=== PATIENT | male | born 1950 | race Caucasian/White ===

== ENCOUNTER → 2020-11-16 | Outpatient (CLI) | payer MEDICARE | END | disposition home or self-care (01) | LOC: CFH 12:36 | PROVIDERS: ATTEND Family Medicine | DX: M79.89 Other specified soft tissue disorders (principal); L08.9 Local infection of the skin and subcutaneous tissue, unspecified ==

== ENCOUNTER 2020-12-04 05:57 | Emergency (ER) | payer MEDICARE ==
[~2020-12-04] VITALS: Ht 198.1 cm; Wt 102.4 kg
--- NOTE | 2020-12-04 07:01 | NUR ---
report to justino, rns
--- NOTE | 2020-12-04 07:03 | NUR ---
bedside report received from shana paiz. pt a&o, resps even and unlabored, terence.
[2020-12-04 07:13] LABS: BASOPHILS % (AUTO) 1 % (0-1); EOSINOPHILS % (AUTO) 3 % (1-7); HCT (SEDRATE) 46.1 % (39.2-51.8); LYMPHOCYTES % (AUTO) 24 % (22-44); MEAN CORPUSCULAR HEMOGLOBIN 30.2 pg (27.5-34.5); MEAN CORPUSCULAR HGB CONC 34.2 g/dL (33.2-36.2); MEAN PLATELET VOLUME 8.4 fL (7.4-10.4); MONOCYTES % (AUTO) 9 % (2-9); NEUTROPHILS % (AUTO) 63 % (42-75); PLATELET COUNT 208 x10^3/uL (130-400); RED BLOOD COUNT 5.22 x10^6/uL (4.38-5.82); RED CELL DISTRIBUTION WIDTH 13.6 % (9.4-14.8)
[2020-12-04 07:20] LABS: ALANINE AMINOTRANSFERASE 46 U/L (12-78); ANION GAP 5 mmol/L (5-15); C-REACTIVE PROTEIN, QUANT 0.06 mg/dL (0.02-0.49); CALCIUM 9.4 mg/dL (8.5-10.1); CHLORIDE 109 mmol/L (98-107)
[2020-12-04 07:22] LABS: ALKALINE PHOSPHATASE 64 U/L (45-117); BILIRUBIN,TOTAL 2.8 mg/dL (0.2-1.0); CREATININE 0.79 mg/dL (0.7-1.3); TOTAL PROTEIN 6.9 g/dL (6.4-8.2)
--- NOTE | 2020-12-04 07:33 | NUR ---
report given to alexx paiz
--- NOTE | 2020-12-04 07:36 | NUR ---
Report received from Elissa. Care assumed
--- NOTE | 2020-12-04 07:51 | NUR ---
pt out of room to MRI
--- NOTE | 2020-12-04 09:04 | NUR ---
pt returned from MRI. ambulated to bathroom with a limped gait.
[2020-12-04] MEDS ORDERED: GADOTERATE 10 MMOL/20ML SYR ONE (10:47)
[2020-12-04 10:52] VITALS: BP 156/91
--- NOTE | 2020-12-04 10:52 | NUR ---
Patient/Caregiver given discharge instructions and they have confirmed that they understand the instructions. Patient ambulatory with steady gait. NAD, all questions answered appropriately, denies additional needs at this time. No personal belongings left in room after discharge.
== END 2020-12-04 10:55 | disposition home or self-care (01) ==
LOC: ED 06:14
DX: S91.332A Puncture wound without foreign body, left foot, initial encounter (principal); W22.8XXA Striking against or struck by other objects, initial encounter; Y93.89 Activity, other specified; Y92.009 Unspecified place in unspecified non-institutional (private) residence as the place of occurrence of the external cause; Y99.8 Other external cause status
CPT/HCPCS: 36415; 73720; 80053; 85025; 85651; 86140; 99285; A9575